=== PATIENT | female | born 1950 | race African-American/Black ===

== ENCOUNTER 2020-05-12 16:58 | Emergency (ER) | payer MEDICARE, MEDICAID ==
[~2020-05-12] VITALS: Ht 172.7 cm; Wt 81.6 kg
[2020-05-12] MEDS ORDERED: GABAPENTIN 300 MG (NEURONTIN) CAP PO ONE (17:00)
--- NOTE | 2020-05-12 17:02 | ED General ---
General Stated Complaint: FEET BURNING Source of Information: Patient Exam Limitations: No Limitations History of Present Illness Date Seen by Provider: May 12, 2020 Time Seen by Provider: 17:02 Initial Comments To ER by EMS from home with reports of bilateral feet burning right greater than left for 3 weeks. States that sometimes it gets cold. She just moved here from [place]. Has a history of a "bad heart" and "a lot of things" but does not know medical history or medications.. Timing/Duration: Other Severity: Moderate Associated Systoms: Denies Symptoms Allergies and Home Medications Allergies Coded Allergies: No Known Drug Allergies (Unverified , 05/12/20) Home Medications Gabapentin 300 Mg Capsule, 300 MG PO TID Prescribed by: DARYN HAGAN on 05/12/20 4782 Patient Home Medication List Home Medication List Reviewed: Yes Review of Systems Review of Systems Constitutional: see HPI EENTM: see HPI Respiratory: no symptoms reported Cardiovascular: no symptoms reported Genitourinary: no symptoms reported Musculoskeletal: no symptoms reported Skin: no symptoms reported Psychiatric/Neurological: No Symptoms Reported Hematologic/Lymphatic: No Symptoms Reported Physical Exam Vital Signs Vital Signs - First Documented 05/12/20 16:58 Temp 35.8 Pulse 102 Resp 22 B/P (MAP) 143/101 (115) Pulse Ox 99 O2 Delivery Room Air Capillary Refill : Height, Weight, BMI Height: '" Weight: lbs. oz. kg; BMI Method: General Appearance: No Apparent Distress, WD/WN, Other Eyes: Bilateral Eye Normal Inspection, Bilateral Eye PERRL, Bilateral Eye EOMI Respiratory: No Accessory Muscle Use Gastrointestinal: Normal Bowel Sounds, Non Tender, Soft Extremity: Slow Capillary Refill, Other (Both lower extremities are cool to touch, I am able to Doppler blood flow over the left dorsalis pedis and posterior tibial artery. On the right I am only able to Doppler blood flow over the dorsalis pedis artery. Given the burning sensation with the subacute nature of pain I am concerned this represents ischemia of the foot. Spoke with Dr. Collins, recommends transfer to vascular surgery.) Neurologic/Psychiatric: Alert, Oriented x3 Skin: Normal Color, Warm/Dry Progress/Results/Core Measures Suspected Sepsis SIRS Temperature: Pulse: Respiratory Rate: Laboratory Tests 05/12/20 17:04: White Blood Count 5.7 Blood Pressure / Mean: Laboratory Tests 05/12/20 17:04: Platelet Count 159 12/11/20 18:12: Creatinine 1.24, Total Bilirubin 3.0H Results/Orders Lab Results Laboratory Tests Test 05/12/20 17:04 05/12/20 18:12 Range/Units White Blood Count 5.7 4.3-11.0 10^3/uL Red Blood Count 5.60 H 3.80-5.11 10^6/uL Hemoglobin 14.0 11.5-16.0 g/dL Hematocrit 46 35-52 % Mean Corpuscular Volume 83 80-99 fL Mean Corpuscular Hemoglobin 25 25-34 pg Mean Corpuscular Hemoglobin Concent 30 L 32-36 g/dL Red Cell Distribution Width 24.2 H 10.0-14.5 % Platelet Count 159 130-400 10^3/uL Mean Platelet Volume 9.0-12.2 fL Immature Granulocyte % (Auto) 1 % Neutrophils (%) (Auto) 63 42-75 % Lymphocytes (%) (Auto) 25 12-44 % Monocytes (%) (Auto) 10 0-12 % Eosinophils (%) (Auto) 1 0-10 % Basophils (%) (Auto) 1 0-10 % Neutrophils # (Auto) 3.6 1.8-7.8 10^3/uL Lymphocytes # (Auto) 1.4 1.0-4.0 10^3/uL Monocytes # (Auto) 0.6 0.0-1.0 10^3/uL Eosinophils # (Auto) 0.0 0.0-0.3 10^3/uL Basophils # (Auto) 0.1 0.0-0.1 10^3/uL Immature Granulocyte # (Auto) 0.0 0.0-0.1 10^3/uL Sodium Level 135 135-145 MMOL/L Potassium Level 3.5 L 3.6-5.0 MMOL/L Chloride Level 95 L 98-107 MMOL/L Carbon Dioxide Level 24 21-32 MMOL/L Anion Gap 16 H 5-14 MMOL/L Blood Urea Nitrogen 44 H 7-18 MG/DL Creatinine 1.24 0.60-1.30 MG/DL Estimat Glomerular Filtration Rate 52 BUN/Creatinine Ratio 35 Glucose Level 82 70-105 MG/DL Calcium Level 8.2 L 8.5-10.1 MG/DL Corrected Calcium 8.7 8.5-10.1 MG/DL Total Bilirubin 3.0 H 0.1-1.0 MG/DL Aspartate Amino Transf (AST/SGOT) 41 H 5-34 U/L Alanine Aminotransferase (ALT/SGPT) 49 0-55 U/L Alkaline Phosphatase 129 40-136 U/L B-Type Natriuretic Peptide 2064.2 H <100.0 PG/ML Total Protein 6.8 6.4-8.2 GM/DL Albumin 3.4 3.2-4.5 GM/DL My Orders Orders - DARYN HAGAN MANAGER ENTRY Cbc With Automated Diff (05/12/20 17:00) Gabapentin Capsule/Tablet (Neurontin Cap (05/12/20 17:00) BNP (05/12/20 17:27) Chest 1 View, Ap/Pa Only (05/12/20 17:27) Comprehensive Metabolic Panel (05/12/20 17:35) Heparin Drip 16752 Unit/500ml (Heparin (05/12/20 19:00) Heparin (Bolus Per Protocol) (Heparin (B (05/12/20 19:00) Fentanyl Injection (Sublimaze Injection (05/12/20 19:00) Medications Given in ED Current Medications Medications Dose Ordered Sig/Penelope Route Start Time Stop Time Status Last Admin Dose Admin Gabapentin 300 mg ONCE ONCE PO 05/12/20 17:00 05/12/20 17:02 DC 05/12/20 17:42 300 MG Vital Signs/I&O 05/12/20 16:58 Temp 35.8 Pulse 102 Resp 22 B/P (MAP) 143/101 (115) Pulse Ox 99 O2 Delivery Room Air Capillary Refill : Departure Communication (Admissions) [id number]-Spoke with Dr. Collins from cardiology here, recommends transfer to a facility that offers vascular surgery. [facility] in [place] does not have any beds, [facility] in [place] and [place] do not have any beds. [facility] access and they have availability at [facility]. Impression Primary Impression: Ischemic foot Additional Impression: PAD (peripheral artery disease) Disposition: 01 HOME, SELF-CARE Condition: Stable Transfer Transfer Reason: Diversion Departure-Patient Inst. Decision time for Depature: 17:08 Referrals: TOYA MONTES MD UNKNOWN (PCP) Primary Care Physician Patient Instructions: Peripheral Neuropathy (DC), Peripheral Vascular Stenting (DC) Add. Discharge Instructions: 1. Call Dr. Montes on Friday to make an appointment to be seen for follow-up as you may need a study to look at the blood flow in the arteries in the legs. Scripts Gabapentin (Neurontin) 300 Mg Capsule 300 MG PO TID, #15 CAP Prov: DARYN HAGAN APRN 05/12/20 Copy Copies To 1: TOYA MONTES MD, PETER J APRN May 12, 2020 17:02
[2020-05-12 17:21] LABS: BASOPHILS # (AUTO) 0.1 10^3/uL (0.0-0.1); BASOPHILS % (AUTO) 1 % (0-10); EOSINOPHILS % (AUTO) 1 % (0-10); HEMATOCRIT 46 % (35-52); LYMPHOCYTES # (AUTO) 1.4 10^3/uL (1.0-4.0); LYMPHOCYTES % (AUTO) 25 % (12-44); MEAN CORPUSCULAR HEMOGLOBIN 25 pg (25-34); MEAN CORPUSCULAR HGB CONC 30 g/dL (32-36); MEAN CORPUSCULAR VOLUME 83 fL (80-99); MONOCYTES # (AUTO) 0.6 10^3/uL (0.0-1.0); MONOCYTES % (AUTO) 10 % (0-12); NEUTROPHILS # (AUTO) 3.6 10^3/uL (1.8-7.8); NEUTROPHILS % (AUTO) 63 % (42-75); PLATELET COUNT 159 10^3/uL (130-400); WHITE BLOOD COUNT 5.7 10^3/uL (4.3-11.0)
--- NOTE | 2020-05-12 18:19 | Diagnostic Imaging Report ---
INDICATION: History of fluid around the heart. FINDINGS: Upright view of the chest demonstrates marked cardiomegaly. A pericardial effusion cannot be excluded. The lungs are clear. The vascularity is normal. There is questionable small right pleural effusion. IMPRESSION: 1. There is severe cardiomegaly. Pericardial effusion cannot be excluded. 2. There is a small right pleural effusion. Dictated by: Dictated on workstation # [id number]
[2020-05-12 18:27] LABS: ALBUMIN 3.4 GM/DL (3.2-4.5); POTASSIUM 3.5 MMOL/L (3.6-5.0)
[2020-05-12 18:28] LABS: CALCIUM 8.2 MG/DL (8.5-10.1)
[2020-05-12 18:30] LABS: TOTAL PROTEIN 6.8 GM/DL (6.4-8.2)
[2020-05-12 18:33] LABS: CREATININE SERUM 1.24 MG/DL (0.60-1.30)
[2020-05-12] MEDS ORDERED: GABA300C PO (18:39)
[2020-05-12] MEDS ORDERED: fentaNYL INJECTION 100 MCG/2 ML AMP IVP PRN (19:00)
[2020-05-12] MEDS ORDERED: HEParin DRIP 25000 UNIT/500ML 500 ML IV ONE (19:00)
[2020-05-12] MEDS: HEParin 1000 UNIT/ML (10ML VIAL) FOR BOLUS IV ONE ×2 (19:04→19:58)
[2020-05-12] MEDS ORDERED: fentaNYL INJECTION 100 MCG/2 ML AMP IVP ONE (19:30)
[2020-05-12 19:47] LABS: INR 1.8 (0.8-1.4); PROTHROMBIN TIME PATIENT 20.9 SEC (12.2-14.7)
[2020-05-12] MEDS ORDERED: FUROSEMIDE 40 MG/4 ML INJ (LASIX) ONE (20:04)
[2020-05-12 20:20] VITALS: BP 139/109
--- NOTE | 2020-05-13 03:25 | NUR ---
RESULTS OF RAPID COVID TEST FAXED TO [facility] [place].
== END 2020-05-12 20:20 | disposition home or self-care (01) ==
LOC: EDBD 17:00 → ER 17:00
DX: I70.223 Atherosclerosis of native arteries of extremities with rest pain, bilateral legs (principal); Z20.828 Contact with and (suspected) exposure to other viral communicable diseases
CPT/HCPCS: 51702; 71045; 80053; 83880; 85025; 85610; 85730; 99284; U0002; 36415; 87635